=== PATIENT | female | born 1935 | race Caucasian/White ===

== ENCOUNTER → 2018-05-13 | Outpatient (CLI) | payer MEDICARE, BC ==
--- NOTE | 2018-05-13 17:01 | PN ---
PROGRESS NOTE DATE OF SERVICE: 05/13/2018 This patient is an 83-year-old lady who has been followed in the sleep center for treatment of obstructive sleep apnea-hypopnea syndrome. The patient is on treatment with CPAP and uses it well, but recently she developed some problems related to humidity. The humidifier is working, but for some reason there was not enough humidity in her mask. [place] Sleepiness Scale today is 16. I checked her CPAP unit. CPAP pressure in the machine is only 4 cm of water. I checked the humidifier, and it is working. There is production of heat on the base of the humidifier. MEDICATIONS: 1. Insulin. 2. Simvastatin. 3. Lotensin. PHYSICAL EXAMINATION: GENERAL A pleasant lady without distress. VITAL SIGNS: BP 102/44, HR 78, RR 14, height 5 feet 0 inches, weight 134.8, BMI 26.1. Temperature 97.9. Oxygen saturation at room air 97%. HEENT: PERRLA, EOMI. Evaluation of oropharynx showed tongue protrudes midline; low position of soft palate. NECK: Supple. No JVD. Thyroid is not palpable. LUNGS: Clear to percussion and to auscultation. Good air exchange. No wheezing or rhonchi. HEART: S1, S2 regular. No murmurs, gallops or rubs. ABDOMEN: Soft and nontender. Bowel sounds are present. No organomegaly appreciated. EXTREMITIES : No clubbing or cyanosis. QUILT MAKER: Awake, alert, and oriented X3. Cranial nerves 2 to 7 intact. There is no fasciculation or atrophy. noted. No focal deficits observed. IMPRESSION: 1. Severe obstructive apnea-hypopnea syndrome. Patient is benefitting from CPAP therapy. She recently had some problems with the humidifier. 2. History of hypertension. 3. Diabetes mellitus. 4. Hyperlipidemia. 5. Carpal tunnel syndrome. PLAN: 1. I checked the patient's CPAP unit and adjusted CPAP pressure up to 7 cm of water. 2. Patient will continue to use her CPAP equipment every night for the whole night. 3. The filter in the machine will be replaced. The patient has new filters for replacement. 4. Prescription for all necessary CPAP supplies, including mask, tubes and filters. 5. Sleep hygiene with regular time in bed for at least 8 hours. Sincerely, Amado Delaney MD, PhD, FAASM Diplomat of [employer] Sample Box Maker of [facility] [place] [email or web address] / GREGORYN: [id number] /
== END ==
LOC: SLEEP 14:38
PROVIDERS: ATTEND Internal Medicine
DX: G47.33 Obstructive sleep apnea (adult) (pediatric) (principal); Z53.9 Procedure and treatment not carried out, unspecified reason